=== PATIENT | female | born 1960 | race Caucasian/White ===

== ENCOUNTER → 2017-01-20 | Outpatient (CLI) | payer OTHER | LOC: FIMAGING 10:00 | DX: Z12.31 Encounter for screening mammogram for malignant neoplasm of breast (principal) | CPT/HCPCS: G0202 ==

== ENCOUNTER → 2018-02-03 | Outpatient (CLI) | payer OTHER | LOC: FIMAGING 10:45 | PROVIDERS: ATTEND Internal Medicine | DX: Z12.31 Encounter for screening mammogram for malignant neoplasm of breast (principal) ==

== ENCOUNTER 2018-02-13 16:55 | Inpatient (IN) | payer OTHER ==
--- NOTE | 2018-02-13 17:10 | EDPHY ---
H & P Time Seen by Provider: 02/13/18 17:06 HPI/ROS: CHIEF COMPLAINT: Abdominal pain HISTORY OF PRESENT ILLNESS: The patient is a 58 y/o female with a history of an appendectomy and colitis complaining of abdominal pain, onset 1 month ago. Since an initial episode of colitis after an appendectomy, she has had occasional episodes of similar abdominal pain primarily when she is stressed. For the past month she has been under more stress, so she thought the colitis was acting up. 4 days ago the abdominal pain increased and became moderate to severe. The pain is constant and is associated with fever, nausea and decreased appetite over the past 4 days. She also recently developed left leg swelling associated with an achy feeling in her thigh muscle. Denies vomiting, diarrhea, chest pain, shortness of breath, urinary or bowel complaints, paresthesias, numbness. Prior colonoscopies have been normal. Mother has an extensive history of blood clots. REVIEW OF SYSTEMS: Aside from elements discussed in the HPI, a comprehensive 10-point review of systems was reviewed and is negative. Past Medical/Surgical History: Appendectomy, colitis, keratotomy, ortho surgeries Social History: Lives in [place], at bedside, not employed Smoking Status: Never smoked Physical Exam: General Appearance: Alert, pleasant Eyes: Pupils equal and round, no conjunctival pallor ENT, Mouth: Mucous membranes moist Neck: Normal inspection Respiratory: Lungs are clear to auscultation Cardiovascular: Regular rate and rhythm Gastrointestinal: LLQ tenderness to palpation, abdomen is soft Neurological: A&O, nonfocal exam Skin: Warm and dry, no rash Extremities: Nontender, slight left leg swelling compared to right Vascular: 2+ DP pulses Psychiatric: Mood and affect normal Constitutional: Initial Vital Signs Temperature (C) 38.4 C H 02/13/18 17:02 Heart Rate 86 02/13/18 17:02 Respiratory Rate 18 02/13/18 17:02 Blood Pressure 117/80 02/13/18 17:02 O2 Sat (%) 98 02/13/18 17:02 O2 Delivery Mode Room Air O2 (L/minute) 2 Allergies/Adverse Reactions: No Known Allergies Allergy (Unverified 02/13/18 17:05) Home Medications: Medication Instructions Recorded Herbals/Supplements -Info Only 1 ea PO DAILY 02/13/18 Medical Decision Making - Diagnostics Imaging Results: Abdomen CT 02/13/18 17:37 Impression: 1. Extensive deep venous thrombosis involving the left common, internal, and external iliac veins, bulging into, yet does not occlude, the inferior vena cava. Extensive regional edema along the course of the deep venous thrombosis and trace free fluid in the low pelvis. 2. Pelvic varices and enlarged gonadal veins raise the possibility of underlying chronic stenosis of the left iliac distribution, resulting in systemic collaterals in the pelvis. 3. Sigmoid diverticulosis. No acute diverticulitis. 4. No abscess, lymphadenopathy, or mass. Findings discussed with Emergency Department physician, Dr. Jeannette Harrison on February 13, 2018 at 1910 hours. Extremity Venous Study 02/13/18 17:42 Impression: Extensive acute deep venous thrombosis involving the left external iliac, common femoral, femoral, and popliteal veins. Findings discussed with Emergency Department physician, Dr. Jeannette Harrison on February 13, 2018 at 1830 hours. Imaging: Discussed imaging studies w/ change coordinator Radiologist, I viewed and interpreted images myself ED Course/Re-evaluation: The patient is a 58 y/o female with a history of an appendectomy and colitis presenting with LLQ tenderness to palpation. Presentation is c/w diverticulitis ; AP CT and labs ordered. Her left leg circumference also measured larger than her right leg; lower extremity US ordered. 1829: Spoke with radiologist, he reports there is an extensive acute deep venous thrombosis involving the left external iliac, common femoral, femoral, and popliteal veins. There is also inflammation around the internal and external iliac veins. 1910: Consulted with Dr. Lee, hospitalist, regarding this patient. He agrees to admit this patient. 1912: Reassessed patient and discussed imaging and laboratory findings. Currently she is unsure if she would like to be admitted or be discharged home on anticoagulants for the DVT. Given systemic symptoms including nausea, fever and abd pain, admission is reasonable in this pt. Could possibly be septic thromboembolism. Blood cultures ordered. Pt does not have cp or SOB; doubt PE. 1931: Patient's nurse has informed me that the patient would like to be admitted to the hospital tonight. 1934: Reassessed patient and discussed plan for admission. She is still nauseous and having abdominal pain; 4mg IV Morphine, 4mg IV Zofran, 650mg PO Tylenol given. Feels much better after meds. 1941: d/w Dr. Lee, advises oral anticoagulant. Patient will be prescribed 15mg PO Xarelto BID. Her first dose will be given in the ED. 1951: Reassessed patient and discussed the risked and benefits of Xarelto. Patient accepts the risks and understands the benefits. Differential Diagnosis: includes though not limited to diverticulitis, bowel perforation, SBO, abscess, PE. - Data Points Laboratory Results: Laboratory Results 02/14/18 11:50 02/14/18 11:50 Microbiology Results: MICROBIOLOGY 02/13/18 20:45 Blood Blood Culture - Preliminary 02/13/18 20:16 Blood Blood Culture - Preliminary Medications Given: Acetaminophen (Tylenol) 650 mg PO Q4HRS PRN PRN Reason: Pain, Mild/Fever, Can Take PO Stop: 08/12/18 20:42 Last Admin: 02/15/18 05:29 Dose: 650 mg Sodium Chloride (Ns) 1,000 mls @ 75 mls/hr IV CONT LUIS Stop: 08/13/18 11:59 Last Admin: 02/14/18 18:07 Dose: 1,000 mls Alteplase, Recombinant 5 mg/ (Sodium Chloride) 100 mls @ 0 mls/hr IV CONT LUIS; Per Protocol PRN Reason: Protocol Stop: 08/13/18 15:29 Last Admin: 02/15/18 00:50 Dose: 100 mls Heparin Sodium (Porcine) (Heparin 50 Units/Ml (Premix)) 500 mls @ 0 mls/hr IV CONT LUIS; As Directed PRN Reason: Protocol Stop: 08/13/18 15:29 Last Admin: 02/14/18 19:42 Dose: 500 mls Ondansetron HCl (Zofran Odt) 4 mg PO Q4HRS PRN PRN Reason: Nausea/Vomiting, Use 1st Stop: 08/12/18 20:42 Last Admin: 02/15/18 08:00 Dose: 4 mg Discontinued Medications Acetaminophen (Tylenol) 650 mg PO EDNOW ONE Stop: 02/13/18 19:39 Last Admin: 02/13/18 19:49 Dose: 650 mg Hydrocodone Bitart/Acetaminophen ([place] 5/325) 1 tab PO Q4H PRN PRN Reason: pain, moderate Stop: 02/24/18 18:55 Last Admin: 02/15/18 00:55 Dose: 1 tab Fentanyl (Sublimaze) 0 mcg IVP ONCALL PRN PRN Reason: Per provider during procedure Stop: 02/14/18 15:00 Last Admin: 02/14/18 15:43 Dose: 50 mcg Heparin Sodium (Porcine) (Heparin Injection) 0 unit IVP ONCE ONE PRN Reason: Protocol Stop: 02/14/18 02:42 Last Admin: 02/14/18 02:57 Dose: 3,800 units Sodium Chloride (Ns) 1,000 mls @ 0 mls/hr IV ONCE ONE; Wide Open PRN Reason: Protocol Stop: 02/13/18 17:56 Last Admin: 02/13/18 17:59 Dose: 1,000 mls Heparin Sodium (Porcine) (Heparin 50 Units/Ml (Premix)) 500 mls @ 0 mls/hr IV CONT LUIS; Per Protocol PRN Reason: Protocol Stop: 08/13/18 02:44 Last Admin: 02/14/18 02:57 Dose: 500 mls Sodium Chloride (Ns) 1,000 mls @ 3,000 mls/hr IV ONCE ONE Stop: 02/14/18 12:11 Last Admin: 02/14/18 12:36 Dose: 1,000 mls Midazolam HCl (Versed) 0 mg IVP ONCALL PRN PRN Reason: Per provider during procedure Stop: 02/14/18 15:00 Last Admin: 02/14/18 15:44 Dose: 1 mg Morphine Sulfate (Morphine) 4 mg IVP EDNOW ONE Stop: 02/13/18 19:39 Last Admin: 02/13/18 19:52 Dose: 4 mg Ondansetron HCl (Zofran) 4 mg IVP EDNOW ONE Stop: 02/13/18 19:39 Last Admin: 02/13/18 19:50 Dose: 4 mg Oxycodone HCl (Oxycodone Ir) 5 - 10 mg PO Q4HRS PRN PRN Reason: Pain, Severe Able to Take PO Stop: 02/24/18 01:11 Last Admin: 02/14/18 06:05 Dose: 10 mg Protamine Sulfate (Protamine Sulfate) 25 mg IVP ONCE ONE Stop: 02/14/18 18:00 Last Admin: 02/14/18 18:07 Dose: 25 mg Rivaroxaban (Xarelto) 15 mg PO EDNOW ONE Stop: 02/13/18 19:42 Last Admin: 02/13/18 19:49 Dose: 15 mg Departure - Departure Disposition: [facility] In[facility] Acute Clinical Impression: DVT (deep venous thrombosis) Qualifiers: DVT location: lower extremity Affected thrombotic vein of extremity: femoral Chronicity: acute Laterality: left Qualified Code(s): I82.412 - Acute embolism and thrombosis of left femoral vein Condition: Fair Report Scribed for: Jeannette Harrison Report Scribed by: Dorothea Rivas Date of Report: 02/13/18 Time of Report: 17:10 Physician Review and Approval Statement: 02/13/18 17:10 Portions of this note were transcribed by a mobile paramedical examiner. I personally performed a history, physical exam, medical decision making, and confirmed accuracy of information the transcribed note.
[2018-02-13 17:29] LABS: PLATELET COUNT 338 10^3/uL (150-400)
[2018-02-13] MEDS ORDERED: IOPAMIDOL (ISOVUE-300) 100 ML BTL ONE (17:46)
[2018-02-13] MEDS ORDERED: NS 1,000 ML IV ONE (17:55)
[2018-02-13] MEDS ORDERED: ONDANSETRON 4 MG/2 ML VIAL IVP ONE (19:38)
[2018-02-13] MEDS ORDERED: ACETAMINOPHEN 325 MG TAB PO ONE (19:38)
[2018-02-13] MEDS ORDERED: RIVAROXABAN 15 MG TAB PO ONE (19:41)
[2018-02-13] MEDS ORDERED: LORazepam 0.5 MG TAB PO PRN (20:43)
[2018-02-13] MEDS ORDERED: ONDANSETRON 4 MG/2 ML VIAL IVP PRN (20:43)
[2018-02-13 21:02] LABS: INR 1.07 (0.83-1.16); PROTIME(PATIENT) 14.1 SEC (12.0-15.0)
--- NOTE | 2018-02-13 21:13 | GHP ---
[f rep st] HISTORY AND PHYSICAL DATE OF ADMISSION: 02/13/2018 HISTORY OF PRESENT ILLNESS: The patient is a very pleasant 58-year-old female with minimal past medi naomy history, essentially none, who presents with left lower quadrant abdominal pain. She has a histo ry of appendectomy with subsequent colitis years ago with no recurrent. About 4 days ago, she had wo rsening abdominal pain and some left leg swelling. She has not had cough. She has had fleeting ches t pains, but nothing significant. She has not been short of breath. She has not had dyspnea. She h as had previous normal colonoscopies. No abdominal cramping. No shortness of breath or no urinary symptoms. She has had some subjective f sumit. She does not have a cough, shortness of breath, or urinary symptoms. REVIEW OF SYSTEMS: Complete 10-point review of systems conducted, negative except as noted in the HP I. PAST MEDICAL HISTORY: Appendectomy, colitis, keratotomy, orthopedic surgery. She lives in [place] . Nonsmoker. Rare alcohol. FAMILY HISTORY: Mother had multiple clotting events with no named clotting disorder. ALLERGIES: No known drug allergies. HOME MEDICATIONS: None. PHYSICAL EXAMINATION: VITAL SIGNS: Temp 38.4, blood pressure 117/80, pulse 86, breathing 18 times a minute, 98% on room air. GENERAL: No acute distress. HEENT: Sclerae anicteric. Oropharynx clear . Mucous membranes moist. NECK: Supple. No lymphadenopathy or JVD. LUNGS: Clear to auscultation bilaterally. HEART: S1, S2. ABDOMEN: Soft, nontender, nondistended. Shows some left lower quadr ant tenderness without rebound or guarding. Bowel sounds are normal. LOWER EXTREMITIES: Her left l ower extremity really is an unremarkable exam, slightly bigger than the right, otherwise unremarkable . LABS: UA is unremarkable. Sodium 138, potassium 3.6, chloride 101, bicarb 26, BUN 13, creatinine 0. 6, glucose is 96. White count 8, hematocrit 38, platelets are 338,000. Extremity ultrasound shows e xtensive DVT involving the left external iliac, common femoral, femoral, and popliteal veins. Abdomi nal CT shows extensive DVT involving left common femoral, internal, external iliac veins, bulging int o yet not occluding the superior vena cava. She has extensive regional edema along the course. 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 She has sigmoid diverticulosis. I discussed the case Dr. Keyla Harrison and Dr. Parul Sandoval. ASSESSMENT/PLAN: A 58-year-old female with fever and extensive deep venous thrombosis. 1. Fever is likely secondary to extensive deep venous thrombosis, as the remainder of her evaluation is somewhat unremarkable. Chest x-ray has not been obtained, but she has no cough, no sputum, and n ormal chest exam. Blood cultures have been drawn. We will follow. I have a low suspicion for septi c thrombophlebitis. 2. Deep venous thrombosis. This is extensive. There is no clear anatomic abnormality, other than t he dilated pelvic veins are noted. My suspicion is that she has had a chronic clot that has propagat ed, given her subacute course that got worse. She received a dose of direct oral anticoagulant. I w ill not continue this. I will start her on heparin in about 4 hours for now. IR will see her. 3. Abdominal pain. I think this is attributable to her proximal DVT. We will follow. She does not have any peritoneal signs. 4. Prophylaxis. Obviously, she is therapeutically anticoagulated. DISPOSITION: Observation status. /[id number]/MODL
[2018-02-14] MEDS: oxyCODONE IR 5 MG TAB PO PRN ×2 (01:26→06:05)
[2018-02-14] MEDS ORDERED: HEPARIN 10,000 UNIT/10 ML MDV (1,000 UNIT/ML) IVP ONE (02:41)
[2018-02-14] MEDS ORDERED: HEPARIN 10,000 UNIT/10 ML MDV (1,000 UNIT/ML) IVP PRN ×2 (02:45→13:59)
[2018-02-14] MEDS ORDERED: HEPARIN/DEXTROSE 500 ML IV SCH ×2 (02:45→15:30)
[2018-02-14] MEDS: ACETAMINOPHEN 325 MG TAB PO PRN ×2 (07:53→12:20)
[2018-02-14 09:30] LABS: INR 1.34 (0.83-1.16); PROTIME(PATIENT) 16.8 SEC (12.0-15.0)
--- NOTE | 2018-02-14 09:53 | ASMTCMCOM ---
CM Note CM Note Notes: Patient here with abdominal pain actually d/t a DVT, pt receiving anticoagulants. Lives at home w/, otherwise has been independent. RN anticipates pt will dc home w/support of when medically stable. CM available for any changes. DC Plan: Independent Date Signed: 02/14/2018 09:53 AM Electronically Signed By:Estelle Hoyt RN
[2018-02-14] MEDS ORDERED: NS 1,000 ML IV ONE (11:52)
[2018-02-14 12:07] LABS: PLATELET COUNT 317 10^3/uL (150-400)
--- NOTE | 2018-02-14 12:18 | HOSPPROG ---
Hospitalist Progress Note Assessment/Plan: #Extensive Proximal LLE DVT #Pedal Edema #Hypotension #Fever, none since before admission Plan: Very low suspicion for infectious etiology but given hx of fever and hypotension , will check stat CBC and procalcitonin Her low BP could be due to low volume as she has minimal oral intake since yesterday. She is not symptomatic. Given the extensive clot, I will order a CTA chest to r/o P.E. She will have catheter directed thrombolysis today Will provided IVF for renal protection change to inpatient D/W nurse and with IR Subjective: low bp. No SOB, no cp. LLE edema Objective: Vital Signs Temp Pulse Resp BP Pulse Ox 36.8 C 64 16 104/61 96 02/14/18 11:19 02/14/18 11:19 02/14/18 11:19 02/14/18 11:19 02/14/18 11:19 Laboratory Results 02/14/18 11:50 02/13/18 02/14/18 02/15/18 05:59 05:59 05:59 Intake Total 1000 Balance 1000 PT 16.8 SEC (12.0-15.0) H 02/14/18 09:10 INR 1.34 (0.83-1.16) H 02/14/18 09:10 - Physical Exam Constitutional: no apparent distress Eyes: PERRL, EOMI Ears, Nose, Mouth, Throat: moist mucous membranes, hearing normal Cardiovascular: regular rate and rhythym, edema Respiratory: no respiratory distress, no rales or rhonchi Gastrointestinal: normoactive bowel sounds, soft, non-tender abdomen Skin: warm Musculoskeletal: full muscle strength Neurologic: AAOx3 Psychiatric: interacting appropriately, not anxious, not encephalopathic Lymph, Heme, Immunologic: No petechiae ICD10 Worksheet Patient Problems: Problems Problem Status Onset DVT (deep venous thrombosis) Acute
--- NOTE | 2018-02-14 12:24 | PDGENHP ---
History & Physical Chief Complaint: Iliofemoral DVT History of Present Illness: 58 yo F w h/o HLD who p/w worsening LLQ pain x4 days. Typically very active, but has been less active lately because of the pain. Noticed assymetric swelling in LLE yesterday. Came to ED last night where US and CT demonstrated extensive Lt iliofemoral DVT. IR consulted for consideration of thrombolysis. Also has h/o Rt ankle sprain 1.5 wks ago which responded well to ice and crutches. When not moving, LLQ pain 2/10, which is slightly improved since yesterday. She thinks the swelling may have worsened though. Endorses fatigue and fever/chills yesterday, resolved w Tylenol. Denies CP, SOB, COUCH, MINA, changes in bowel or bladder habits. Treatment options discussed at length, including CDT versus standard heparin and anticoagulation, as well as results of the ATTRACT trial published in 2017. The potential benefts and risks of CDT, including but not limited to pain, bleeding ( intracranial or elsewhere), infection, PE, procedure failure, damage to other structure, as well as the potential need for additional procedures such as stent placement were discussed. Alternatives were also discussed. She would like to proceed with CDT. Full consult to follow. Pertinent Past, Social, Family History: No personal h/o of bleeding diathesis, strokeb or GIB. Mom had h/o blood clots and PE. Relevant Physical Exam: Appears well. Mild to moderate LLE edema w/o pitting. The Lt foot and knee have a subtle purplish tint. LLQ TTP. Cardiorespiratory Assessment: RRR. Normal resp effort.
[2018-02-14] MEDS ORDERED: IOPAMIDOL (ISOVUE 370) 100 ML BTL IV ONE (12:38)
--- NOTE | 2018-02-14 12:38 | PDMN ---
Medical Necessity Medical necessity: C/M review: Patient meets INPT criteria under MCG 350 Deep venous thrombosis of lower extremities: Acute and persistent extensive proximal left lower extremity DVT - involving the left external iliac, common femoral, femoral and popliteal veins seen on Doppler US, hypotension - 2017 BP 94/56, pedal edema, left lower extremity edema, fever -none since before admission (admit temp 38.4 02/13/2018 17:02 PM)requiring planned 2017 CTA chest, IR consult for possible IR intervention, 1liter NS IV bolus, ongoing IV Heparin infusion, IV NS 75 ml/hr infusion. anticipates > 2 MN LOS for ongoing med nec for eval and TX of above.
--- NOTE | 2018-02-14 12:38 | PDPROPOC ---
Sedation Plan of Care Sedation Plan of Care: vital signs stable, mental status noted, patient educated of risks, benefits, alternatives, patient can tolerate sedation ASA Classification: ASA 2 Planned drugs: fentanyl, midazolam Mallampati Score: Class 2 Mallampati Reference Image: Patient passed 3-3-2 rule?: Yes
[2018-02-14] MEDS ORDERED: NALOXONE HCL 0.4 MG/ML INJ ONE (12:55)
[2018-02-14] MEDS ORDERED: MIDAZOLAM 2 MG/2 ML VIAL ONE (12:56)
[2018-02-14] MEDS ORDERED: FLUMAZENIL 0.5 MG/5 ML MDV IVP ONE (12:56)
[2018-02-14] MEDS ORDERED: fentaNYL 100 MCG/2 ML INJ ONE (12:56)
[2018-02-14] MEDS ORDERED: ALTEPLASE 5 MG in NS 100 ML IV SCH (13:00)
[2018-02-14] MEDS: NS 1,000 ML IV SCH ×2 (13:58→18:07)
[2018-02-14] MEDS ORDERED: NALOXONE HCL 0.4 MG/ML INJ IVP PRN (13:59)
[2018-02-14] MEDS ORDERED: PROTAMINE SULFATE 50 MG/5 ML VIAL IVP PRN (13:59)
[2018-02-14] MEDS ORDERED: GLUCAGON HCL 1 MG VIAL IVP PRN (13:59)
[2018-02-14] MEDS ORDERED: FLUMAZENIL 0.5 MG/5 ML MDV IVP PRN (13:59)
[2018-02-14] MEDS ORDERED: MEPERIDINE 25 MG/ML SYR IVP PRN (13:59)
[2018-02-14] MEDS ORDERED: MIDAZOLAM 2 MG/2 ML VIAL IVP PRN (13:59)
[2018-02-14] MEDS ORDERED: fentaNYL 100 MCG/2 ML INJ IVP PRN (13:59)
[2018-02-14] MEDS ORDERED: ALTEPLASE 2 MG VIAL IVP PRN (13:59)
[2018-02-14] MEDS ORDERED: PROMETHAZINE HCL 25 MG/ML INJ IVP PRN (14:54)
--- NOTE | 2018-02-14 14:54 | PDRADPN ---
Radiology Procedure Note Date of Procedure: 02/14/18 Radiologist: Alen Sandoval Anesthesia: IV Sedation Pre-op Diagnosis: Lt iliofemoral DVT Post-op Diagnosis: Same Indication: Lt iliofemoral DVT, pain and swelling Procedure: Venography, initiation of catheter-directed thrombolysis Finding(s): See dictated report Inf/Abcess present in the surg proc area at time of surgery?: No EBL: Minimal Complications: No immediate
[2018-02-14] MEDS: ONDANSETRON DISINTEGRATING 4 MG TAB PO PRN (15:43)
[2018-02-14 15:45] LABS: PLATELET COUNT 265 10^3/uL (150-400)
[2018-02-14 15:55] LABS: INR 2.11 (0.83-1.16); PROTIME(PATIENT) 23.7 SEC (12.0-15.0)
--- NOTE | 2018-02-14 16:56 | SOAPPROG ---
SOAP Progress Note Assessment/Plan: Assessment/plan: 58 yo F w extensive Lt iliofemoral DVT s/p initiation of CTD this afternoon. Doing well after transfer to ICU. LLQ pain unchanged. Has low level MINA which is unchanged from last night. Lt popliteal dressing CDI. No bleeding from site. No palpable hematoma. Slight drop in H&H felt to be dilutional since pt was given IV fluids around the time of her CT chest. Prior to the leaving the procedure room, tPA was started at 1 mg/hr, but heparin was inadvertently started at 300 mL/hr, instead of the 300 units/hr which was ordered. This was detected soon after arrival to the ICU. It was corrected by the patient's nurse and brought to my attention. I requested tPA and heparin be stopped immediately. PTT drawn. D/w cesspool cleaner Dr. Navarro. We informed the patient and her of the error together. According to the pump, the 312 mL were infused (not including heparin in the line). The nurse and I personally emptied the heparin bag, which contained approximately 165 mL heparin (25,000 units/500 mL). Prior to attaching the line to the patient, approximately 15 mL was wasted clearing the line of air bubbles. By my best estimate, she received approximately 320 mL heparin at 25,000 units per 500 mL ( 50 units per mL), which equals 16,000 units. PTT came back >250. D/w with pharmacist Annette Damian, who discussed the situation with her [facility] pharmacist colleagues. Because of heparin's relatively short half-life, they recommended PTT be redrawn every hr to establish a trend. If PTT below 250 after next draw, then can defer giving protamine. If PTT still critical, then they recommended 50 mg protamine be given. Will continue to check PTTs q hr until <60, and tPA will be held until PTT <60. I am agreeable to this plan. D/w pt and her , who are also agreeable. She will be closely observed. Frequent neuro and access site checks. 02/14/18 16:56 02/14/18 17:43 02/14/18 17:47 Objective: Vital Signs Temp Pulse Resp BP Pulse Ox 36.6 C 67 15 117/72 100 02/14/18 13:16 02/14/18 14:30 02/14/18 14:30 02/14/18 14:30 02/14/18 14:30 Laboratory Results 02/14/18 15:30 02/14/18 15:30 PT 23.7 SEC (12.0-15.0) H 02/14/18 15:30 INR 2.11 (0.83-1.16) H 02/14/18 15:30 ICD10 Worksheet Patient Problems: Problems Problem Status Onset DVT (deep venous thrombosis) Acute
[2018-02-14] MEDS ORDERED: PROTAMINE SULFATE 50 MG/5 ML VIAL IVP ONE (17:59)
[2018-02-14 19:34] LABS: INR 1.25 (0.83-1.16); PROTIME(PATIENT) 15.9 SEC (12.0-15.0)
[2018-02-14] MEDS ORDERED: HYDROCODONE/APAP 5/325 TAB PO PRN (19:45)
[2018-02-14] MEDS: HYDROCODONE/APAP 5/325 TAB PO PRN ×2 (20:09→20:16)
[2018-02-15 00:19] LABS: INR 1.24 (0.83-1.16); PROTIME(PATIENT) 15.8 SEC (12.0-15.0)
[2018-02-15] MEDS: ALTEPLASE 5 MG in NS 100 ML IV SCH ×2 (00:50→18:24)
[2018-02-15] MEDS: HYDROCODONE/APAP 5/325 TAB PO PRN (00:55)
[2018-02-15] MEDS: ACETAMINOPHEN 325 MG TAB PO PRN ×2 (05:29→21:55)
[2018-02-15 05:36] LABS: PLATELET COUNT 253 10^3/uL (150-400)
--- NOTE | 2018-02-15 07:25 | SOAPPROG ---
SOAP Progress Note Assessment/Plan: Assessment/plan: 58 yo F w extensive Lt iliofemoral DVT s/p initiation of low-dose tPA CTD POD# 1. Pt experienced 8/10 Lt thigh pain shortly after resumption of tPA last night. No evidence bleeding. Out of precaution, the tPA dose was decreased from 1 mg/hr to 0.5 mg/hr, a little sooner than it would have been reduced per usual protocol. This did seem to help with the pain, so she was kept at 0.5 mg/hr overnight per usual protocol. She is doing well this morning. No complaints and pain free at rest. 1. tPA @ 0.6 mg/hr (per weight-based dosing tPA @ 0.01 mg/hr/kg, which is very close to the usual 0.5 mg/hr). 2. Heparin @ 150 units/hr through sheath. 3. Plan for lysis check this afternoon. Need for additional thrombolysis, angioplasty, thrombectomy, and/or stenting discussed with pt. All questions answered. 02/14/18 16:56 02/14/18 17:43 02/14/18 17:47 02/15/18 07:16 02/15/18 07:40 02/15/18 07:54 02/15/18 11:33 02/15/18 11:37 Subjective: Doing well this am. Pain is improved. Endorses some nausea, but may be attributable to [place]. No other complaints. Objective: Vital Signs Temp Pulse Resp BP Pulse Ox 37.2 C 75 24 H 108/61 91 L 02/15/18 01:00 02/15/18 06:00 02/15/18 06:00 02/15/18 06:00 02/15/18 06:00 Laboratory Results 02/15/18 05:07 02/15/18 05:07 02/14/18 02/15/18 02/16/18 05:59 05:59 05:59 Intake Total 172 Balance 172 PT 15.8 SEC (12.0-15.0) H 02/14/18 23:59 INR 1.24 (0.83-1.16) H 02/14/18 23:59 Gen: WDWN, NAD HEENT: Normocephalic, atraumatic, anicteric, OP clear Heart: RRR Resp: Normal effort Abd: ND, LLQ still very TTP MSK: Mild to moderate LLE edema, no pitting, Lt popliteal dressing CDI, no bleeding or palpable hematoma ICD10 Worksheet Patient Problems: Problems Problem Status Onset DVT (deep venous thrombosis) Acute
[2018-02-15] MEDS: ONDANSETRON DISINTEGRATING 4 MG TAB PO PRN ×2 (08:00→14:52)
--- NOTE | 2018-02-15 09:32 | HOSPPROG ---
Hospitalist Progress Note Assessment/Plan: #Extensive Left Ileofemoral DVT, s/p TPA on POD #1 #Left Thigh pain of unclear etiology. TPA dosing was decreased. No e/o bleeding. No further pain after decreasing dose. Monitor for now #Anemia, possibly dilutional, will check repeat labs in a.m. #Medication Error: Large amounts of Heparin were given and PTT was above 250. Protamine was given. Repeat PTT have been at goal. Heparin has been restarted. #Left Pedal Edema #Hypotension resolved. Her baseline BP is 110's systolic #Fever, none since before admission. Negative Leukocytosis. Negative procalcitonin. no e/o infection Plan: Cont TA protocol per IR Cont IVF. She has had large amounts of contrast. Cr is stable. Monitor BP, currently stable Cont Heparin Monitor for signs of bleeding. None currently. VSS cont inpatient cont ICU care Subjective: No further Left thigh pain. VSS. s/p catheter directed thrombolysis. Seen in the ICU Objective: Vital Signs Temp Pulse Resp BP Pulse Ox 37.2 C 75 24 H 108/61 91 L 02/15/18 01:00 02/15/18 06:00 02/15/18 06:00 02/15/18 06:00 02/15/18 06:00 Laboratory Results 02/15/18 05:07 02/15/18 05:07 02/14/18 02/15/18 02/16/18 05:59 05:59 05:59 Intake Total 172 Balance 172 PT 15.8 SEC (12.0-15.0) H 02/14/18 23:59 INR 1.24 (0.83-1.16) H 02/14/18 23:59 - Physical Exam Constitutional: no apparent distress Eyes: PERRL Ears, Nose, Mouth, Throat: moist mucous membranes, hearing normal Cardiovascular: regular rate and rhythym, edema (LLE, 1+) Respiratory: no respiratory distress, no rales or rhonchi, clear to auscultation Gastrointestinal: normoactive bowel sounds, soft, non-tender abdomen Skin: warm Neurologic: AAOx3 Psychiatric: interacting appropriately, not anxious, not encephalopathic Lymph, Heme, Immunologic: No petechiae ICD10 Worksheet Patient Problems: Problems Problem Status Onset DVT (deep venous thrombosis) Acute
[2018-02-15] MEDS ORDERED: IOPAMIDOL (ISOVUE-370) 150 ML BTL IV ONE (15:13)
[2018-02-15] MEDS ORDERED: NALOXONE HCL 0.4 MG/ML INJ ONE (15:22)
[2018-02-15] MEDS ORDERED: MIDAZOLAM 2 MG/2 ML VIAL ONE (15:22)
[2018-02-15] MEDS ORDERED: FLUMAZENIL 0.5 MG/5 ML MDV IVP ONE (15:23)
[2018-02-15] MEDS ORDERED: fentaNYL 100 MCG/2 ML INJ ONE (15:23)
--- NOTE | 2018-02-15 15:33 | PDINTPN ---
Accounting Software Specialist Progress Note Assessment/Plan: Assessment: Extensive LLE DVT: Common Iliac->popliteal. ? Chronic, wih some collaterals. S/ P tPA, now with tPA catheter infusion. Received an accidental OD of heparin ( Approx 20k units over 90 minutes) yesterday, APTT supratheraputic for several hours, now in therapeutic range. No signs of bleeding. Nausea: ? due to NPO, lying flat, extensive DVT. Better with Zofran Plan: Back to IR suite for re-evaluation later this afternoon. 02/15/18 15:29 02/15/18 15:30 Subjective: Has some nausea, a bit better with Zofran. Some persistent LLQ pain, no leg pain. Objective: Vital Signs Temp Pulse Resp BP Pulse Ox 37.2 C 75 24 H 108/61 91 L 02/15/18 01:00 02/15/18 06:00 02/15/18 06:00 02/15/18 06:00 02/15/18 06:00 Laboratory Results 02/15/18 05:07 02/15/18 05:07 02/14/18 02/15/18 02/16/18 05:59 05:59 05:59 Intake Total 172 Balance 172 PT 15.8 SEC (12.0-15.0) H 02/14/18 23:59 INR 1.24 (0.83-1.16) H 02/14/18 23:59 Physical Exam - Physical Exam General Appearance: alert, no apparent distress EENT: normal ENT inspection Neck: normal inspection Respiratory: lungs clear Cardiac/Chest: regular rate, rhythm, No edema Abdomen: normal bowel sounds, non-tender, soft Skin: normal color, warm/dry Extremities: normal inspection Neuro/Psych: alert, No motor weakness ICD10 Worksheet Patient Problems: Problems Problem Status Onset DVT (deep venous thrombosis) Acute
--- NOTE | 2018-02-15 15:59 | GHP ---
[f rep st] HISTORY AND PHYSICAL DATE OF ADMISSION: 02/14/2018 REFERRING PHYSICIAN: Foreign Serrano MD PULMONARY/CRITICAL CARE CONSULTATION. REASON FOR REFERRAL: Evaluation and management of deep venous thrombosis and nausea. HISTORY: The patient is a 58-year-old woman who had the onset of some left lower quadrant abdominal pain about 4 days ago. This was accompanied by some left leg swelling. She denied any cough or ches t pains and had not had shortness of breath. She was seen in the emergency department 2 days ago and was found to have an extensive DVT, Interventional Radiology was consulted and catheter directed thr ombolysis was initiated. Upon return from the procedure, she feels some improvement in the discomfor t. Catheter is still in place. PAST MEDICAL HISTORY: Appendectomy, colitis. MEDICATIONS: At the time of admission, none. ALLERGIES: None. SOCIAL HISTORY: The patient does not smoke or drink. FAMILY HISTORY: Unremarkable. REVIEW OF SYSTEMS: A 10-point review of systems adds nothing to the history of present illness. PHYSICAL EXAMINATION: GENERAL: The patient is awake and alert. VITAL SIGNS: Blood pressure is 112 /63 with a heart rate of 69, she is afebrile, oxygen saturations are 100% on room air. HEENT: Normo cephalic and atraumatic. No icterus. NECK: No JVD. Trachea is midline. CHEST: Clear to ausculta tion. CARDIAC: Regular rate and rhythm without murmur. ABDOMEN: Soft, nontender. Bowel sounds ar e present. EXTREMITIES: No clubbing, cyanosis, or edema. NEURO: The patient is awake and alert. She has no gross motor or sensory deficits. LABORATORY: Hemoglobin is 9.7, down from 12.3 earlier today. A chemistry group is unremarkable. CT scan of the abdomen demonstrates extensive DVT in the left common iliac vein extending down to the internal and external iliac veins. It does not include occluded the inferior vena cava. She has so me pelvic varices. Images reviewed by me. A CT scan of the chest shows some mild bronchitis. Images were reviewed by me. ASSESSMENT: 1. Deep venous thrombosis. The patient has an extensive deep venous thrombosis that extends up to t he inferior vena cava and all the way down to the popliteal veins. She has undergone catheter direct ed thrombolysis and has a catheter in place. At the end of the procedure, the patient apparently maninder dvertently received more heparin than intended. Approximately 20,000 units has been infused over the past hour and a half or so. There are no signs of active bleeding. I discussed the case with RNInez and the patient and her , including the risks of over anticoagulation. RECOMMENDATIONS: 1. Check an APTT now and frequently until it has normalized. Observe closely for signs of bleeding. 2. If patient develops any signs of bleeding, particularly if the APTT is still elevated, protamine can be given. However, given the extensive deep venous thrombosis and the absence of bleeding, I wonabil gerardo hold off on that right now. /[id number]/MODL
[2018-02-15] MEDS ORDERED: MEPERIDINE 25 MG/ML SYR IVP PRN (16:09)
[2018-02-15] MEDS ORDERED: fentaNYL 100 MCG/2 ML INJ IVP PRN (16:09)
[2018-02-15] MEDS ORDERED: MIDAZOLAM 2 MG/2 ML VIAL IVP PRN (16:09)
[2018-02-15] MEDS ORDERED: HEPARIN 10,000 UNIT/10 ML MDV (1,000 UNIT/ML) IVP PRN (16:09)
[2018-02-15] MEDS ORDERED: ALTEPLASE 2 MG VIAL IVP PRN (16:09)
[2018-02-15] MEDS ORDERED: GLUCAGON HCL 1 MG VIAL IVP PRN (16:09)
[2018-02-15] MEDS ORDERED: FLUMAZENIL 0.5 MG/5 ML MDV IVP PRN (16:09)
[2018-02-15] MEDS ORDERED: NALOXONE HCL 0.4 MG/ML INJ IVP PRN (16:09)
[2018-02-15] MEDS ORDERED: PROTAMINE SULFATE 50 MG/5 ML VIAL IVP PRN (16:09)
[2018-02-15 16:40] LABS: INR 1.57 (0.83-1.16); PROTIME(PATIENT) 18.9 SEC (12.0-15.0)
[2018-02-15] MEDS ORDERED: CEFAZOLIN 1 GM/DEXTROSE/50 ML BAG IV ONE (17:12)
[2018-02-15] MEDS: NS 1,000 ML IV SCH (18:49)
--- NOTE | 2018-02-15 19:06 | PDRADPN ---
Radiology Procedure Note Date of Procedure: 02/15/18 Radiologist: Alen Sandoval Anesthesia: IV Sedation Pre-op Diagnosis: Left iliofemoral DVT Post-op Diagnosis: Same Indication: Lysis check Procedure: Venography, exchange of indwelling lysis catheter, continuation of CDT Finding(s): See dictated report Inf/Abcess present in the surg proc area at time of surgery?: No EBL: Minimal Complications: No immediate
[2018-02-15] MEDS ORDERED: HYDROCODONE/APAP 5/325 TAB PO PRN (19:45)
[2018-02-16 06:09] LABS: PLATELET COUNT 204 10^3/uL (150-400)
[2018-02-16] MEDS ORDERED: IOPAMIDOL (ISOVUE-300) 100 ML BTL ONE ×3 (08:16→16:33)
--- NOTE | 2018-02-16 09:24 | SOAPPROG ---
JEM Progress Note Assessment/Plan: Assessment/plan: 58 yo F w extensive Lt iliofemoral DVT s/p initiation of low-dose tPA CTD POD# 2. Was able to get another 13 hrs of lytic, but fibrinogen < 100 this am, so TPA stopped. PTT has been in the 50s even though heparin has been off. LLE still mildly swollen, but not as firm. She remains pain free at rest. No evidence of bleeding. 1. Stop TPA. 2. Heparin @ 300 units/hr through the sheath. 3. Plan for lysis check today with Dr. Do with possible angioplasty, thrombectomy, and/or stenting. 02/14/18 16:56 02/14/18 17:43 02/14/18 17:47 02/15/18 07:16 02/15/18 07:40 02/15/18 07:54 02/15/18 11:33 02/15/18 11:37 02/16/18 11:11 02/19/18 09:28 Subjective: Doing well this am. Slept better. Nausea improved. Pain free at rest, but some pain with palpation of LLQ. Objective: Vital Signs Temp Pulse Resp BP Pulse Ox 36.9 C 68 22 H 99/51 L 93 02/16/18 08:00 02/16/18 08:00 02/16/18 08:00 02/16/18 08:00 02/16/18 08:00 Laboratory Results 02/16/18 05:30 02/16/18 05:30 02/15/18 02/16/18 02/17/18 05:59 05:59 05:59 Intake Total 172 1086 Output Total 900 350 Balance 172 186 -350 PT 18.9 SEC (12.0-15.0) H 02/15/18 16:25 INR 1.57 (0.83-1.16) H 02/15/18 16:25 Gen: WDWN, NAD HEENT: Normocephalic, atraumatic, anicteric, OP clear Heart: RRR Resp: Normal effort Abd: ND, LLQ mild to moderately TTP MSK: Mild LLE edema, less firm than yesterday, no pitting, Lt popliteal dressing CDI, no bleeding or palpable hematoma ICD10 Worksheet Patient Problems: Problems Problem Status Onset DVT (deep venous thrombosis) Acute
[2018-02-16] MEDS ORDERED: LIDOCAINE 1% 300 MG/30 ML SDV ONE (09:43)
[2018-02-16 14:30] LABS: INR 1.26 (0.83-1.16)
[2018-02-16] MEDS ORDERED: MIDAZOLAM 2 MG/2 ML VIAL IVP PRN (15:29)
[2018-02-16] MEDS ORDERED: MEPERIDINE 25 MG/ML SYR IVP PRN (15:29)
[2018-02-16] MEDS ORDERED: FLUMAZENIL 0.5 MG/5 ML MDV IVP PRN (15:29)
[2018-02-16] MEDS ORDERED: NALOXONE HCL 0.4 MG/ML INJ IVP PRN (15:29)
[2018-02-16] MEDS ORDERED: fentaNYL 100 MCG/2 ML INJ IVP PRN (15:29)
[2018-02-16] MEDS ORDERED: NS 1,000 ML IV SCH (15:30)
[2018-02-16] MEDS ORDERED: HEPARIN 10,000 UNIT/10 ML MDV (1,000 UNIT/ML) ONE (15:52)
[2018-02-16] MEDS ORDERED: ALTEPLASE 2 MG VIAL ONE (15:58)
[2018-02-16] MEDS ORDERED: ALTEPLASE 2 MG VIAL IVP ONE (16:15)
--- NOTE | 2018-02-16 16:36 | HOSPPROG ---
Hospitalist Progress Note Assessment/Plan: 58 yo F with no significant PMH pw LLQ pain found to be 2/2 extensive left ileofemoral DVT #Extensive Left Ileofemoral DVT, s/p low dose TPA --limited due to fibrinogen levels being low, heparin gtt started with inadvertent over AC as next # over-anticoagulation: 2/2 inadvertent medication overdose, PTT> 250 and given protamine with repeat PTTs at goal, no e/o bleeding, monitoring closely as above #Left Thigh pain of unclear etiology. TPA dosing was decreased. No e/o bleeding. No further pain after decreasing dose. Monitor for now #Anemia, possibly dilutional, will check repeat labs in a.m. #Left Pedal Edema #Hypotension resolved. Her baseline BP is 110's systolic #Fever, none since before admission. Negative Leukocytosis. Negative procalcitonin. no e/o infection Patient new to my care. Old records reviewed and summarized as above. Care plan reviewed with Dr. Rouse and multidisciplinary care team on rounds. Subjective: no significant overnight events, awaiting sheath removal and lying flat and a bit frustrated with that Objective: Vital Signs Temp Pulse Resp BP Pulse Ox 36.8 C 66 21 H 124/60 H 93 02/16/18 11:00 02/16/18 15:00 02/16/18 15:00 02/16/18 15:00 02/16/18 15:00 Laboratory Results 02/16/18 05:30 02/16/18 05:30 02/15/18 02/16/18 02/17/18 05:59 05:59 05:59 Intake Total 172 1086 Output Total 900 1250 Balance 172 186 -1250 PT 16.0 SEC (12.0-15.0) H 02/16/18 14:15 INR 1.26 (0.83-1.16) H 02/16/18 14:15 - Physical Exam Constitutional: no apparent distress Eyes: PERRL Ears, Nose, Mouth, Throat: moist mucous membranes, hearing normal Cardiovascular: regular rate and rhythym, edema (LLE, 1+) Respiratory: no respiratory distress, no rales or rhonchi, clear to auscultation Gastrointestinal: normoactive bowel sounds, soft, non-tender abdomen Skin: warm Neurologic: AAOx3 Psychiatric: interacting appropriately, not anxious, not encephalopathic Lymph, Heme, Immunologic: No petechiae ICD10 Worksheet Patient Problems: Problems Problem Status Onset DVT (deep venous thrombosis) Acute
[2018-02-16] MEDS ORDERED: fentaNYL 100 MCG/2 ML INJ ONE (16:46)
[2018-02-16] MEDS ORDERED: MIDAZOLAM 2 MG/2 ML VIAL ONE (16:47)
[2018-02-16] MEDS ORDERED: HEPARIN 10,000 UNIT/10 ML MDV (1,000 UNIT/ML) IVP PRN (17:42)
--- NOTE | 2018-02-16 17:46 | PDRADPN ---
Radiology Procedure Note Date of Procedure: 02/16/18 Radiologist: Janey Do Anesthesia: IV Sedation Pre-op Diagnosis: DVT Post-op Diagnosis: SAME Indication: LYSIS FOLLOW UP Procedure: VENOGRAM, REGIONAL GUIDE, STENT PLACEMENT Finding(s): COMPLETE CLOT LYSIS. WIDE OPEN ANTEGRADE FLOW. Inf/Abcess present in the surg proc area at time of surgery?: No Complications: NONE
[2018-02-16 18:40] LABS: PLATELET COUNT 241 10^3/uL (150-400)
[2018-02-16 18:48] LABS: INR 1.48 (0.83-1.16); PROTIME(PATIENT) 18.1 SEC (12.0-15.0)
[2018-02-17] MEDS ORDERED: NS 500 ML IV ONE (01:24)
[2018-02-17] MEDS ORDERED: ALBUMIN 5% 500 ML IV ONE (10:25)
[2018-02-17] MEDS: HEPARIN/DEXTROSE 500 ML IV SCH (12:00)
--- NOTE | 2018-02-17 15:56 | HOSPPROG ---
Hospitalist Progress Note Assessment/Plan: 58 yo F with no significant PMH pw LLQ pain found to be 2/2 extensive left ileofemoral DVT #Extensive Left Ileofemoral DVT, s/p low dose TPA --limited due to fibrinogen levels being low, heparin gtt started with inadvertent over AC as next. Sheath now out and repeat venogram showing wide open flow. Etiology for clot unclear, no obvious risk factors. Discussed with patient the need for f/u with hematology and hypercoagulable w/u in the future to determine if there is an underlying tendency towards clotting. # over-anticoagulation: 2/2 inadvertent medication overdose, PTT> 250 and given protamine with repeat PTTs at goal. #Anemia, possibly dilutional, will check repeat labs in a.m. #Left Pedal Edema #Hypotension --BP ran low again overnight, asymptomatic, resolved with fluid resuscitation #Fever, none since before admission. Negative Leukocytosis. Negative procalcitonin. no e/o infection Care plan reviewed with Dr. Rouse and multidisciplinary care team on rounds. Subjective: no significant overnight events, patient feels much better now that she can move her leg, no real pain Objective: Vital Signs Temp Pulse Resp BP Pulse Ox 36.6 C 67 15 89/73 L 96 02/17/18 12:00 02/17/18 12:00 02/17/18 12:00 02/17/18 12:00 02/17/18 12:00 Laboratory Results 02/17/18 06:05 02/17/18 06:05 02/16/18 02/17/18 02/18/18 05:59 05:59 05:59 Intake Total 1086 1787 Output Total 900 1600 Balance 186 187 PT 18.1 SEC (12.0-15.0) H 02/16/18 18:25 INR 1.48 (0.83-1.16) H 02/16/18 18:25 Constitutional: no apparent distress Eyes: PERRL Ears, Nose, Mouth, Throat: moist mucous membranes, hearing normal Cardiovascular: regular rate and rhythym, edema (LLE, 1+) Respiratory: no respiratory distress, no rales or rhonchi, clear to auscultation Gastrointestinal: normoactive bowel sounds, soft, non-tender abdomen Skin: warm Neurologic: AAOx3 Psychiatric: interacting appropriately, not anxious, not encephalopathic Lymph, Heme, Immunologic: No petechiae ICD10 Worksheet Patient Problems: Problems Problem Status Onset DVT (deep venous thrombosis) Acute
--- NOTE | 2018-02-18 00:46 | SOAPPROG ---
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 Patent deep veins by bedside US. No significant bleeding risk at this time from procedure stand point with anticoagulation. Plan: 1. working on therapeutic anticoagulation, which would be bailon to prevent re- thrombosis 2. encourage ambulation 3. applied compression stocking, which will help with redistribution of swelling 4. Can repeat LLE US just before discontinuing anticoagulation in 3-6 months to establish new baseline for patency and appearance of veins 5. once swelling is basically back to normal, may resume full baseline activity level. I suspect this may take a few weeks. 6. safe to d/c Qhour puncture site check from IR standpoint Discussed above with patient in detail, who expressed understanding. 02/18/18 00:42 Subjective: Has been walking around. Mild leg discomfort. No complaints at this time. Objective: Vital Signs Temp Pulse Resp BP Pulse Ox 37 C 65 14 116/72 95 02/17/18 22:22 02/17/18 22:22 02/17/18 22:22 02/17/18 22:22 02/17/18 22:22 Laboratory Results 02/17/18 06:05 02/17/18 06:05 02/16/18 02/17/18 02/18/18 05:59 05:59 05:59 Intake Total 1086 1787 500 Output Total 900 1600 Balance 186 187 500 PT 18.1 SEC (12.0-15.0) H 02/16/18 18:25 INR 1.48 (0.83-1.16) H 02/16/18 18:25 Calf supple; diameter decreasing. Bed side US done: Patent calf veins, pop vein, and CFV, which has mild circumferential wall thickening, likely from inflammation. No hematoma. ICD10 Worksheet Patient Problems: Problems Problem Status Onset DVT (deep venous thrombosis) Acute
[2018-02-18] MEDS: HEPARIN/DEXTROSE 500 ML IV SCH (04:30)
[2018-02-18 07:16] VITALS: BP 115/70; PULSE 63; RESP 15; TEMP 97.5; O2SAT 93
--- NOTE | 2018-02-18 13:52 | PDDCSUM ---
Discharge Summary Discharge Summary: 58 yo F with no significant PMH pw LLQ pain found to be 2/2 extensive left ileofemoral DVT of unclear etiology, non provoked. She has a fm hx of DVT's but there has never been a w/u. Given her extensive DVT and pedal edema, TPA per below was obtained. At the time of d/c the pt's leg edema is much better. She will be changed to Xarelto 15mg PO BID and then change to 20mg daily. She will f/u with Hematology for further mgmt to include hypercoagulable w/u. She should continue with her compression stocking. She should have a repeat LE US in 3-6 months resume normal activity once swelling is back to baseline. DDX: #Extensive Left Ileofemoral DVT, s/p low dose TPA --limited due to fibrinogen levels being low, heparin gtt started with inadvertent over AC as next. Sheath now out and repeat venogram showing wide open flow. Etiology for clot unclear, no obvious risk factors. Discussed with patient the need for f/u with hematology and hypercoagulable w/u in the future to determine if there is an underlying tendency towards clotting. # over-anticoagulation: 2/2 inadvertent medication overdose, PTT> 250 and given protamine with repeat PTTs at goal. #Anemia, possibly dilutional, stable #Left Pedal Edema #Hypotension --resolved #Fever, none since before admission. Negative Leukocytosis. Negative procalcitonin. no e/o infection Exam: NAD AAOX3 RRR CTA B NO LE EDEMA, COMPRESSION STOCKING IN PLACE Meds: see above f/u: per above total time spent on d/c is 35 minutes
[2018-02-18] MEDS ORDERED: RIVAROXABAN 15 MG TAB PO SCH (14:00)
== END 2018-02-18 15:05 | disposition home or self-care (01) | DRG 254 ==
LOC: F3E 22:13 → OBSVTOIN 02-14 11:55 → F2N 02-14 15:03 → F2W 02-17 16:16
PROVIDERS: ADMIT Internal Medicine; ATTEND Internal Medicine
PROC: 02HV33Z Insertion of Infusion Device into Superior Vena Cava, Percutaneous Approach (ICD-10-PCS; principal; 2018-02-14)
PROC: 3E03317 Introduction of Other Thrombolytic into Peripheral Vein, Percutaneous Approach (ICD-10-PCS; principal; 2018-02-14)
PROC: 067N3DZ Dilation of Left Femoral Vein with Intraluminal Device, Percutaneous Approach (ICD-10-PCS; 2018-02-17)
PROC: 067G3DZ Dilation of Left External Iliac Vein with Intraluminal Device, Percutaneous Approach (ICD-10-PCS; 2018-02-17)
DX: I82.422 Acute embolism and thrombosis of left iliac vein (principal); R79.1 Abnormal coagulation profile; T45.515A Adverse effect of anticoagulants, initial encounter; Y63.0 Excessive amount of blood or other fluid given during transfusion or infusion; Y92.238 Other place in hospital as the place of occurrence of the external cause; D64.9 Anemia, unspecified; M79.652 Pain in left thigh
CPT/HCPCS: 82947-QW; 85520-90; 96374; C1725; C1757; C1758; C1769; C1874; C1892; G0378; J0690; J1644; J2250; J2270; J2310; J2405; J2720; J2997; J3010; P9041; Q9967

== ENCOUNTER 2018-02-22 09:33 | Emergency (ER) | payer OTHER ==
--- NOTE | 2018-02-22 11:21 | EDPHY ---
H & P Smoking Status: Never smoked Time Seen by Provider: 02/22/18 10:20 HPI/ROS: CHIEF COMPLAINT: Left arm pain HISTORY OF PRESENT ILLNESS: 58-year-old female presents to the emergency department with left arm pain and concerns about possible DVT. The patient was recently admitted to the hospital with a DVT in her left leg. She is currently on Xarelto. She states that this morning she woke up with pain in her left arm. Denies any known trauma or injury. She thought that it felt a bit swollen and was concerned about possible DVT. Denies pain in her left shoulder or left elbow. Denies fevers or chills. Denies symptoms in the right upper extremity or lower extremities bilaterally. REVIEW OF SYSTEMS: Constitutional: No fever, no chills. Eyes: No double or blurry vision. ENT: No sore throat. Respiratory: No cough, no shortness of breath. Cardiac: No chest pain. Gastrointestinal: No abdominal pain, vomiting or diarrhea. Genitourinary: No dysuria. Musculoskeletal: No neck or back pain. Skin: No rashes. Neurological: No headache. (Melyssa Sharp) Past Medical/Surgical History: DVT left leg, ulcerative colitis, appendectomy, orthopedic surgery (Melyssa Sharp) Social History: (Melyssa Sharp) Physical Exam: General Appearance: Alert, no distress. Vital signs are stable. at bedside. Eyes: Pupils equal and round. Extraocular motions are all intact. ENT: Mouth: Mucous membranes moist. Respiratory: No wheezing, rhonchi, or rales, lungs are clear to auscultation. Cardiovascular: Regular rate and rhythm. Gastrointestinal: Abdomen is soft and nontender, no masses, no rebound or guarding, bowel sounds normal. Neurological: Alert and oriented x 3, cranial nerves II through XII grossly intact Skin: Warm and dry, no rashes. Musculoskeletal: Nontender to palpate along the cervical, thoracic or lumbar spine. Neck is supple. Extremities: I do not appreciate any swelling to left upper extremity. She does have mild pain with palpation of the left mid humerus. No redness or skin. No signs of cellulitis. No bruising. No abrasions. She has full range of motion of her left upper extremity. She has normal sensation to light touch with normal 2 point discrimination. Strong radial pulse at the left wrist. Psychiatric: Patient is oriented X 3, there is no agitation. (Vi Sharprina Victorino) Constitutional: Initial Vital Signs Temperature (C) 36.8 C 02/22/18 09:35 Heart Rate 74 02/22/18 09:35 Respiratory Rate 19 02/22/18 09:35 Blood Pressure 99/59 L 02/22/18 09:35 O2 Sat (%) 98 02/22/18 09:35 O2 Delivery Mode Room Air Allergies/Adverse Reactions: No Known Allergies Allergy (Verified 02/22/18 09:34) Home Medications: Medication Instructions Recorded Herbals/Supplements -Info Only 1 ea PO DAILY 02/13/18 Rivaroxaban [Xarelto 15mg (*)] 15 mg PO BIDMEAL #28 tab 02/18/18 Medical Decision Making - Diagnostics Imaging: Discussed imaging studies w/ fisher scallop Radiologist ED Course/Re-evaluation: 58-year-old female presents to the emergency department left arm pain. Patient is concerned about possible DVT given her recent admission for DVT in her left leg. Ultrasound has been ordered and reveals no evidence of DVT. Patient was reassured. She was comfortable being discharged home. She was instructed to return to the emergency department she developed worsening pain in her upper extremity, if she felt shortness of breath, chest pain, or any other concerns. ( AronMelyssa Victorino) I did not see this patient while she was in the emergency department. However her care was discussed with the PA while the patient was in the department. I agree with treatment plan and management (Chai Lynch) Differential Diagnosis: Including but not limited to muscular strain, DVT, muscular spasm, superficial thrombophlebitis (BriannaMelyssa luis Victorino) Departure - Departure Disposition: Home, Routine, Self-Care Clinical Impression: Left upper arm pain Condition: Good Instructions: Arm Pain (ED) Additional Instructions: Activity as tolerated. Return to the emergency department if you develop worsening swelling, increasing pain in your left upper extremity or if you feel worse in any way. Referrals: Marisa Espinosa MD [Primary Care Provider] - As per Instructions
[2018-02-22 11:58] VITALS: BP 118/62
== END 2018-02-22 11:58 | disposition home or self-care (01) ==
DX: M79.622 Pain in left upper arm (principal)

== ENCOUNTER 2019-01-04 12:07 | Emergency (ER) | payer OTHER ==
[2019-01-04 12:19] VITALS: BP 161/93
--- NOTE | 2019-01-04 12:29 | EDPHY ---
H & P Stated Complaint: fall playing tennis on last friday, bilateral hand injury Time Seen by Provider: 01/04/19 12:14 HPI/ROS: CHIEF COMPLAINT: Fall 3 days ago HISTORY OF PRESENT ILLNESS: The patient is a 58-year-old female who fell playing tennis on Friday. She fell on both outstretched hands and then rolled onto her right shoulder. She has a small abrasion on her right shoulder and her right knee. She is ambulating without difficulty and states she is not worried about her knee or shoulder. She does however have continued pain primarily in her left thumb and right ring finger and wrist. She has some bruising to her left thenar eminence. She has been using her hands normally. The a friend told her yesterday however that because of the bruising she should come get x-rays. She does not have any weakness numbness or paresthesias. She also sustained a small bump to her right cheek but is not concerned about it. No pain with opening or closing her mouth. No vision changes. No abrasion or swelling or bruising. Severity: Moderate Modifying factors: Some improvement over time REVIEW OF SYSTEMS: Constitutional: denies: chills, fever, recent illness, recent injury EENTM: denies: blurred vision, double vision, nose congestion Respiratory: denies: cough, shortness of breath Cardiac: denies: chest pain, irregular heart rate, lightheadedness, palpitations Gastrointestinal/Abdominal: denies: abdominal pain, diarrhea, nausea, vomiting, blood streaked stools Genitourinary: denies: dysuria, frequency, hematuria, pain Musculoskeletal: See HPI Skin: denies: lesions, rash, jaundice, bruising Neurological: denies: headache, numbness, paresthesia, tingling, dizziness, weakness Hematologic/Lymphatic: denies: blood clots, easy bleeding, easy bruising Immunologic/allergic: denies: HIV/AIDS, transplant 10 systems reviewed and negative except as noted EXAM: GENERAL: Well-appearing, well-nourished and in no acute distress. HEAD: Atraumatic, normocephalic. EYES: Pupils equal round and reactive to light, extraocular movements intact, sclera anicteric, conjunctiva are normal. ENT: TMs normal, nares patent, oropharynx clear without exudates. Moist mucous membranes. NECK: Normal range of motion, supple without lymphadenopathy or JVD. LUNGS: Breath sounds clear to auscultation bilaterally and equal. No wheezes rales or rhonchi. HEART: Regular rate and rhythm without murmurs, rubs or gallops. ABDOMEN: Soft, nontender, normoactive bowel sounds. No guarding, no rebound. No masses appreciated. BACK: No CVA tenderness, no spinal tenderness, step-offs or deformities EXTREMITIES: Bruising to left thenar eminence, tenderness, no pain with axial loading. Normal range of motion. Right wrist pain, no snuffbox tenderness, slight bruising to left ring finger mid phalanx. Normal movement. Legs with Normal range of motion, no pitting or edema. No clubbing or cyanosis. NEUROLOGICAL: Cranial nerves II through XII grossly intact. Normal speech, normal gait. 5/5 strength, normal movement in all extremities, normal sensation , normal reflexes PSYCH: Normal mood, normal affect. SKIN: Abrasion to right shoulder and her right knee. Appropriately dressed. Source: Patient Exam Limitations: No limitations - Medical/Surgical History Hx Asthma: No Hx Chronic Respiratory Disease: No Hx Diabetes: No Hx Cardiac Disease: No Hx Renal Disease: No Hx Cirrhosis: No Hx Alcoholism: No Hx HIV/AIDS: No Hx Splenectomy or Spleen Trauma: No Other PMH: appy,left shoulder arth surgery. Keratotomy years ago. ulcerative colitis. l dvt - Family History Significant Family History: No pertinent family hx - Social History Smoking Status: Never smoked Alcohol Use: None Constitutional: Initial Vital Signs Temperature (C) 36.7 C 01/04/19 12:14 Heart Rate 53 L 01/04/19 12:14 Respiratory Rate 18 01/04/19 12:14 Blood Pressure 161/93 H 01/04/19 12:14 O2 Sat (%) 97 01/04/19 12:14 O2 Delivery Mode Room Air Allergies/Adverse Reactions: No Known Allergies Allergy (Verified 01/04/19 12:14) Home Medications: Medication Instructions Recorded Herbals/Supplements -Info Only 1 ea PO DAILY 02/13/18 Medical Decision Making - Diagnostics Imaging Results: Imaging Impressions Hand X-Ray 01/04/19 12:26 Impression: There is no acute osseous abnormality. RIGHT WRIST, 4 Views, at 12:38 PM: Bone mineralization is preserved. There is no fracture or dislocation. The radiocarpal and intercarpal alignments are maintained. The pronator fat pad is not displaced. There is no chondrocalcinosis. The navicular is intact. Impression: Normal. LEFT HAND, 3 Views, at 12:33 PM: A metallic ring overlies the fourth digit proximal phalanx. Bone mineralization is preserved. There is no fracture or dislocation. There are some mild degenerative changes with dorsal osteophyte formation along the base of the second through fifth distal phalanges near the DIP joint level. There are no marginal erosions or periosteal reaction. There is no chondrocalcinosis. The pronator fat pad is not displaced. Impression: There is no acute osseous abnormality. Hand X-Ray 01/04/19 12:26 Impression: There is no acute osseous abnormality. RIGHT WRIST, 4 Views, at 12:38 PM: Bone mineralization is preserved. There is no fracture or dislocation. The radiocarpal and intercarpal alignments are maintained. The pronator fat pad is not displaced. There is no chondrocalcinosis. The navicular is intact. Impression: Normal. LEFT HAND, 3 Views, at 12:33 PM: A metallic ring overlies the fourth digit proximal phalanx. Bone mineralization is preserved. There is no fracture or dislocation. There are some mild degenerative changes with dorsal osteophyte formation along the base of the second through fifth distal phalanges near the DIP joint level. There are no marginal erosions or periosteal reaction. There is no chondrocalcinosis. The pronator fat pad is not displaced. Impression: There is no acute osseous abnormality. Wrist X-Ray 01/04/19 12:26 Impression: There is no acute osseous abnormality. RIGHT WRIST, 4 Views, at 12:38 PM: Bone mineralization is preserved. There is no fracture or dislocation. The radiocarpal and intercarpal alignments are maintained. The pronator fat pad is not displaced. There is no chondrocalcinosis. The navicular is intact. Impression: Normal. LEFT HAND, 3 Views, at 12:33 PM: A metallic ring overlies the fourth digit proximal phalanx. Bone mineralization is preserved. There is no fracture or dislocation. There are some mild degenerative changes with dorsal osteophyte formation along the base of the second through fifth distal phalanges near the DIP joint level. There are no marginal erosions or periosteal reaction. There is no chondrocalcinosis. The pronator fat pad is not displaced. Impression: There is no acute osseous abnormality. Imaging: Discussed imaging studies w/ direct care counselor Radiologist ED Course/Re-evaluation: 12:45 p.m. we discussed the x-ray results. She is reassured. She is moving her finger is without difficulty. No snuffbox tenderness. No laxity of the tendons. We discussed cutting off her ring however she refused. She states that it is not tight or painful. It is 3 days after the injury and likely the swelling has already peaked. I advised her to return if it became painful or tight and we could cut it off Differential Diagnosis: Partial list of the Differential diagnosis considered include but were not limited to; contusion, fracture, ligamentous injury and although unlikely based on the history and physical exam, I also considered dislocation, vascular injury, nerve injury. I discussed these differential diagnoses and the plan with the patient as well as the usual and expected course. The patient understands that the diagnosis is provisional and that in medicine we are not always correct and that further workup is often warranted. Usual and customary warnings were given. All of the patient's questions were answered. The patient was instructed to return to the emergency department should the symptoms at all worsen or return, otherwise to followup with the physician as we discussed. Departure - Departure Disposition: Home, Routine, Self-Care Clinical Impression: Right wrist pain Contusion of left hand Qualifiers: Encounter type: initial encounter Qualified Code(s): S60.222A - Contusion of left hand, initial encounter Abrasion of shoulder, right Qualifiers: Encounter type: initial encounter Qualified Code(s): S40.211A - Abrasion of right shoulder, initial encounter Condition: Fair Instructions: Wrist Injury (ED), Contusion in Adults (ED) Referrals: Marisa Espinosa MD [Primary Care Provider] - 2-3 days, if not improved
== END 2019-01-04 13:00 | disposition home or self-care (01) ==
LOC: CED 12:07
DX: S40.211A Abrasion of right shoulder, initial encounter (principal); S60.222A Contusion of left hand, initial encounter; S80.211A Abrasion, right knee, initial encounter; W19.XXXA Unspecified fall, initial encounter; Y93.73 Activity, racquet and hand sports
CPT/HCPCS: 73110-PO; 73130-PO; 99284-ER

== ENCOUNTER → 2019-03-09 | Outpatient (CLI) | payer OTHER | LOC: FIMAGING 11:01 | PROVIDERS: ATTEND Internal Medicine | DX: Z12.31 Encounter for screening mammogram for malignant neoplasm of breast (principal) ==